=== PATIENT | male | born 1985 | race African-American/Black ===

== ENCOUNTER 2019-01-21 01:10 | Emergency (ER) | payer SELFPAY ==
[2019-01-21] MEDS ORDERED: predniSONE 20 MG TAB ONE (02:06)
== END 2019-01-21 02:05 | disposition home or self-care (01) ==
LOC: BURERS 01:10
DX: L30.9 Dermatitis, unspecified (principal); I10 Essential (primary) hypertension; Z79.899 Other long term (current) drug therapy
CPT/HCPCS: 99282; J7512

== ENCOUNTER 2019-09-05 19:29 | Emergency (ER) | payer BC, SELFPAY | END 2019-09-05 20:34 | disposition home or self-care (01) | LOC: BURERS 19:29 | DX: R19.7 Diarrhea, unspecified (principal); I10 Essential (primary) hypertension | CPT/HCPCS: 99281 ==